=== PATIENT | male | born 1955 | race Caucasian/White ===

== ENCOUNTER 2022-05-08 22:31 | Inpatient (IN) | payer MEDICARE, OTHER, SELFPAY ==
[2022-05-09] MEDS ORDERED: Ondansetron PF 4 MG/2 ML Vial IVP PRN (02:22)
[2022-05-09] MEDS ORDERED: Acetaminophen 325 MG TAB PO PRN (02:22)
[2022-05-09 02:23] VITALS: BMI 20.5
[2022-05-09] MEDS ORDERED: Dextrose 5% in Water 1,000 ML IV PRN (02:23)
[2022-05-09] MEDS ORDERED: Dextrose 50% Abboject 50 ML SYRINGE SLOW IVP PRN (02:23)
[2022-05-09] MEDS: Sodium Chloride 0.9% 1,000 ML IV SCH ×2 (02:38→16:47)
[2022-05-09] MEDS: Piperacillin/Tazobactam 3.375 GM in Sodium Chloride 0.9% 100 ML IVPB SCH ×3 (02:49→18:09)
[2022-05-09 02:56] LABS: #Eosinphils 0.2 thou/uL (0.0-0.7); #Lymphocytes 1.3 thou/uL (1.20-3.40); #Monocytes 1.6 thou/uL (0.11-0.59); #Neutrophils 10.5 thou/uL (1.40-6.50); %Basophils 0.3 % (0.0-1.0); %Eosinophils 1.2 % (0.0-10.0); %Lymphocytes 9.7 % (21.0-51.0); %Monocytes 11.9 % (0.0-10.0); %Neutrophils 76.9 % (42.0-75.0); Hemoglobin 14.5 g/dL (14.0-18.0); Mean Corpuscular HGB CONC 35.2 g/dL (32.0-36.0); Mean Corpuscular Hemoglobin 33.9 pg (27.0-31.0); Mean Corpuscular Volume 96.4 fl (78.0-98.0); Mean Platelet Volume 5.8 fL (7.4-10.4); Platelet Count 366 10x3/uL (130-400); RBC Distribution Width 10.6 % (11.5-14.5); Red Blood Cell (RBC) Count 4.28 mill/uL (4.70-6.10); White Blood Cell (WBC) Count 13.7 10x3/uL (4.8-10.8)
[2022-05-09 03:14] LABS: Lactic Acid 1.5 mmol/L (0.5-2.2)
[2022-05-09 03:18] LABS: Hemoglobin A1c 12.4 % (4.0-6.0)
[2022-05-09 03:24] LABS: Anion Gap 16 mmol/L (10-20); BUN (Urea Nitrogen) 9 mg/dL (8.4-25.7); Calc. Creatinine Clearance 91 mL/min (70-130); Calcium 8.9 mg/dL (7.8-10.44); Carbon Dioxide 21 mmol/L (23-31); Chloride 99 mmol/L (98-107); Estimated GFR 99; Glucose 303 mg/dL (80-115); Potassium 3.7 mmol/L (3.5-5.1); Sodium 132 mmol/L (136-145)
[2022-05-09 03:28] LABS: SARS-CoV-2 NAA Rapid Test DETECTED (NotDetected)
[2022-05-09] MEDS ORDERED: Bacitracin Zinc Ointment 30 gm TUBE ONE (03:57)
[2022-05-09] MEDS ORDERED: Thrombin 5000 UNITS/5 ML VIAL ONE (03:57)
[2022-05-09] MEDS ORDERED: Bupivacaine PF 0.5% 30 ML VIAL ONE (03:57)
[2022-05-09] MEDS ORDERED: Neomycin-Polymyxin 1 ML AMP ONE (03:57)
[2022-05-09] MEDS ORDERED: fentaNYL PF 100 MCG/2 ML SYRINGE ONE (04:54)
[2022-05-09] MEDS ORDERED: Midazolam HCl 2 mg/2 ml Vial ONE (05:04)
[2022-05-09] MEDS ORDERED: Ondansetron PF 4 MG/2 ML Vial ONE (05:45)
[2022-05-09] MEDS ORDERED: PROPOFOL 200 MG/20 ML VIAL ONE (05:45)
[2022-05-09] MEDS ORDERED: Dexamethasone 20 MG/5 ML VIAL ONE (05:45)
[2022-05-09] MEDS ORDERED: PHENYLEPHRINE-NS 100 MCG/ML 10 ML SYRINGE ONE (05:45)
[2022-05-09] MEDS ORDERED: Promethazine HCl 25 MG/ML VIAL IM PRN (06:58)
[2022-05-09] MEDS ORDERED: Promethazine HCl 25 MG/ML VIAL IVPB PRN (06:58)
[2022-05-09] MEDS ORDERED: Ondansetron HCl/PF 4 MG/2 ML Vial IVP PRN (06:58)
[2022-05-09] MEDS ORDERED: HYDROmorphone 2 MG/ML VIAL SLOW IVP PRN (06:58)
[2022-05-09] MEDS ORDERED: Meperidine HCl/PF 25 MG/ML VIAL IM PRN (07:10)
[2022-05-09] MEDS ORDERED: Morphine 4 MG/ML VIAL SLOW IVP PRN (07:10)
[2022-05-09] MEDS: Vancomycin 1 GM in Premix Bag 1 BAG IVPB SCH ×2 (08:15→22:05)
[2022-05-09] MEDS ORDERED: Pen G 2.5 MILL.UNITS/50 ML BAG IVPB SCH (09:00)
[2022-05-09] MEDS ORDERED: Vancomycin HCl 1.5 GM in Sodium Chloride 0.9% 250 ML 300 ML IVPB SCH (09:00)
[2022-05-09] MEDS ORDERED: Insulin Glargine 30 UNITS/0.3 ML VIAL SC SCH (09:30)
[2022-05-09] MEDS: Penicillin G Potassium 2.5 MILL.UNITS in Sodium Chloride 0.9% 50 ML IVPB SCH ×4 (09:56→22:05)
[2022-05-09] MEDS: HumaLOG 300 UNITS/3 ML VIAL SC PRN ×2 (12:55→18:09)
[2022-05-09] MEDS: oxyCODONE/Acetaminophen 5 mg/325 mg Tablet PO PRN ×2 (13:02→20:21)
[2022-05-09] MEDS ORDERED: Gentamicin 80 MG/2 ML VIAL IM SCH (14:00)
[2022-05-09] MEDS: Gentamicin Sulfate 80 MG in Premix Bag 1 BAG IVPB SCH ×2 (14:40→23:12)
[2022-05-10] MEDS: Penicillin G Potassium 2.5 MILL.UNITS in Sodium Chloride 0.9% 50 ML IVPB SCH ×3 (01:16→10:47)
[2022-05-10] MEDS: HumaLOG 300 UNITS/3 ML VIAL SC PRN ×3 (01:16→16:38)
[2022-05-10] MEDS: Piperacillin/Tazobactam 3.375 GM in Sodium Chloride 0.9% 100 ML IVPB SCH (02:45)
[2022-05-10] MEDS: Sodium Chloride 0.9% 1,000 ML IV SCH (05:45)
[2022-05-10 06:01] LABS: #Eosinphils 0.3 thou/uL (0.0-0.7); #Lymphocytes 1.2 thou/uL (1.20-3.40); #Neutrophils 7.8 thou/uL (1.40-6.50); %Basophils 0.2 % (0.0-1.0); %Eosinophils 2.5 % (0.0-10.0); %Lymphocytes 11.3 % (21.0-51.0); %Monocytes 10.1 % (0.0-10.0); %Neutrophils 75.9 % (42.0-75.0); Hemoglobin 12.9 g/dL (14.0-18.0); Mean Corpuscular HGB CONC 34.5 g/dL (32.0-36.0); Mean Corpuscular Hemoglobin 33.6 pg (27.0-31.0); Mean Corpuscular Volume 97.6 fl (78.0-98.0); Mean Platelet Volume 5.8 fL (7.4-10.4); Platelet Count 367 10x3/uL (130-400); RBC Distribution Width 10.5 % (11.5-14.5); Red Blood Cell (RBC) Count 3.84 mill/uL (4.70-6.10); White Blood Cell (WBC) Count 10.3 10x3/uL (4.8-10.8)
[2022-05-10 06:16] LABS: Anion Gap 13 mmol/L (10-20); BUN (Urea Nitrogen) 10 mg/dL (8.4-25.7); Calc. Creatinine Clearance 95 mL/min (70-130); Calcium 8.5 mg/dL (7.8-10.44); Carbon Dioxide 22 mmol/L (23-31); Chloride 102 mmol/L (98-107); Estimated GFR 100; Glucose 221 mg/dL (80-115); Potassium 3.7 mmol/L (3.5-5.1); Sodium 133 mmol/L (136-145)
[2022-05-10] MEDS: Gentamicin Sulfate 80 MG in Premix Bag 1 BAG IVPB SCH (06:30)
[2022-05-10] MEDS: Vancomycin 1 GM in Premix Bag 1 BAG IVPB SCH ×2 (07:22→16:38)
[2022-05-10] MEDS: Insulin Glargine 30 UNITS/0.3 ML VIAL SC SCH (07:22)
[2022-05-10 08:20] LABS: Vancomycin, Trough 10.4 ug/mL
[2022-05-10] MEDS ORDERED: Vancomycin 1 GM in Premix Bag 1 BAG IVPB SCH (09:00)
[2022-05-10] MEDS: Cefepime 2 GM in Sodium Chloride 0.9% 100 ML IVPB SCH (15:10)
[2022-05-10] MEDS: oxyCODONE/Acetaminophen 5 mg/325 mg Tablet PO PRN (16:38)
[2022-05-11] MEDS: Cefepime 2 GM in Sodium Chloride 0.9% 100 ML IVPB SCH ×2 (01:42→14:18)
[2022-05-11] MEDS: Vancomycin 1 GM in Premix Bag 1 BAG IVPB SCH ×3 (02:31→16:26)
[2022-05-11] MEDS ORDERED: Bupivacaine PF 0.5% 30 ML VIAL ONE (09:50)
[2022-05-11] MEDS ORDERED: Fentanyl 250 MCG/5 ML VIAL ONE (10:29)
[2022-05-11] MEDS ORDERED: Mineral Oil Sterile 10 ML VIAL ONE (11:04)
[2022-05-11] MEDS ORDERED: Insulin Glargine 30 UNITS/0.3 ML VIAL SC SCH (12:45)
[2022-05-11] MEDS: oxyCODONE/Acetaminophen 5 mg/325 mg Tablet PO PRN ×2 (14:17→19:42)
[2022-05-11] MEDS: HumaLOG 300 UNITS/3 ML VIAL SC PRN ×2 (16:27→23:40)
[2022-05-11 16:33] LABS: #Basophils 0.1 thou/uL (0.0-0.2); #Eosinphils 0.2 thou/uL (0.0-0.7); #Monocytes 0.6 thou/uL (0.11-0.59); #Neutrophils 6.1 thou/uL (1.40-6.50); %Basophils 0.8 % (0.0-1.0); %Eosinophils 2.6 % (0.0-10.0); %Lymphocytes 12.1 % (21.0-51.0); %Monocytes 7.6 % (0.0-10.0); %Neutrophils 76.9 % (42.0-75.0); Hemoglobin 13.6 g/dL (14.0-18.0); Mean Corpuscular HGB CONC 33.5 g/dL (32.0-36.0); Mean Corpuscular Hemoglobin 32.7 pg (27.0-31.0); Mean Corpuscular Volume 97.6 fl (78.0-98.0); Mean Platelet Volume 5.7 fL (7.4-10.4); Platelet Count 352 10x3/uL (130-400); RBC Distribution Width 10.7 % (11.5-14.5); Red Blood Cell (RBC) Count 4.17 mill/uL (4.70-6.10); White Blood Cell (WBC) Count 7.9 10x3/uL (4.8-10.8)
[2022-05-11 16:49] LABS: Vancomycin, Trough 19.2 ug/mL
[2022-05-11 16:53] LABS: Anion Gap 14 mmol/L (10-20); BUN (Urea Nitrogen) 9 mg/dL (8.4-25.7); Calc. Creatinine Clearance 82 mL/min (70-130); Calcium 9.2 mg/dL (7.8-10.44); Carbon Dioxide 21 mmol/L (23-31); Chloride 102 mmol/L (98-107); Estimated GFR 96; Glucose 339 mg/dL (80-115); Potassium 4.3 mmol/L (3.5-5.1); Sodium 133 mmol/L (136-145)
[2022-05-11] MEDS: Insulin Glargine 30 UNITS/0.3 ML VIAL SC SCH (18:50)
[2022-05-11] MEDS: Lisinopril 10 MG TAB PO SCH (21:33)
[2022-05-12] MEDS: Cefepime 2 GM in Sodium Chloride 0.9% 100 ML IVPB SCH ×2 (00:47→12:37)
[2022-05-12] MEDS: Vancomycin 1 GM in Premix Bag 1 BAG IVPB SCH ×2 (01:50→09:56)
[2022-05-12] MEDS: HumaLOG 300 UNITS/3 ML VIAL SC PRN ×3 (06:28→17:05)
[2022-05-12 08:17] LABS: Glucose 263 mg/dL (80-115)
[2022-05-12] MEDS ORDERED: Insulin Glargine 30 UNITS/0.3 ML VIAL SC SCH ×2 (09:00→12:00)
[2022-05-12 13:18] LABS: Glucose 299 mg/dL (80-115)
[2022-05-12] MEDS: cefTRIAXone\\ROCEPHIN 2 GM in Sodium Chloride 0.9% 100 ML IVPB SCH (17:02)
[2022-05-12] MEDS: DAPTOmycin 500 MG in Sodium Chloride 0.9% 100 ML IVPB SCH (18:05)
[2022-05-12] MEDS: Lisinopril 10 MG TAB PO SCH (21:00)
[2022-05-13] MEDS ORDERED: hydrALAZINE 10 MG TAB PO SCH (05:30)
[2022-05-13 05:58] LABS: #Eosinphils 0.2 thou/uL (0.0-0.7); #Monocytes 0.6 thou/uL (0.11-0.59); #Neutrophils 3.9 thou/uL (1.40-6.50); %Basophils 0.5 % (0.0-1.0); %Eosinophils 3.8 % (0.0-10.0); %Lymphocytes 17.2 % (21.0-51.0); %Monocytes 10.2 % (0.0-10.0); %Neutrophils 68.3 % (42.0-75.0); Hemoglobin 12.8 g/dL (14.0-18.0); Mean Corpuscular HGB CONC 34.5 g/dL (32.0-36.0); Mean Corpuscular Hemoglobin 33.5 pg (27.0-31.0); Mean Corpuscular Volume 97.1 fl (78.0-98.0); Mean Platelet Volume 5.4 fL (7.4-10.4); Platelet Count 448 10x3/uL (130-400); RBC Distribution Width 10.5 % (11.5-14.5); Red Blood Cell (RBC) Count 3.83 mill/uL (4.70-6.10); White Blood Cell (WBC) Count 5.7 10x3/uL (4.8-10.8)
[2022-05-13 06:18] LABS: Anion Gap 11 mmol/L (10-20); BUN (Urea Nitrogen) 7 mg/dL (8.4-25.7); CRP (Inflammatory) 2.47 mg/dL (= or < 0.5); Calc. Creatinine Clearance 92 mL/min (70-130); Calcium 9.1 mg/dL (7.8-10.44); Carbon Dioxide 28 mmol/L (23-31); Chloride 103 mmol/L (98-107); Estimated GFR 99; Glucose 255 mg/dL (80-115); Potassium 3.9 mmol/L (3.5-5.1); Sodium 138 mmol/L (136-145)
[2022-05-13] MEDS ORDERED: Insulin Glargine 30 UNITS/0.3 ML VIAL SC SCH ×2 (09:00→13:45)
[2022-05-13] MEDS ORDERED: Bupivacaine 0.25% HCL 30 ML VIAL ONE (11:19)
[2022-05-13] MEDS ORDERED: Mineral Oil Sterile 10 ML VIAL ONE ×2 (11:19)
[2022-05-13] MEDS ORDERED: Bacitracin Zinc Ointment 30 gm TUBE ONE ×2 (11:19→13:24)
[2022-05-13] MEDS ORDERED: Bupivacaine PF 0.5% 30 ML VIAL ONE (11:19)
[2022-05-13] MEDS ORDERED: Fentanyl 250 MCG/5 ML VIAL ONE (11:27)
[2022-05-13] MEDS ORDERED: Sodium Chloride 0.9% 100 ML ONE (12:05)
[2022-05-13] MEDS ORDERED: CEFAZOLIN 2 GM VIAL ONE (12:05)
[2022-05-13] MEDS ORDERED: Ondansetron PF 4 MG/2 ML Vial ONE (12:10)
[2022-05-13] MEDS ORDERED: PROPOFOL 200 MG/20 ML VIAL ONE (12:10)
[2022-05-13] MEDS ORDERED: Phenylephrine 10 MG/ML VIAL ONE (12:10)
[2022-05-13] MEDS ORDERED: Ketorolac Tromethamine 30 MG/ML VIAL ONE (12:10)
[2022-05-13] MEDS: cefTRIAXone\\ROCEPHIN 2 GM in Sodium Chloride 0.9% 100 ML IVPB SCH (17:52)
[2022-05-13] MEDS: DAPTOmycin 500 MG in Sodium Chloride 0.9% 100 ML IVPB SCH (18:43)
[2022-05-13] MEDS: Lisinopril 10 MG TAB PO SCH (20:34)
[2022-05-13] MEDS: HumaLOG 300 UNITS/3 ML VIAL SC PRN (21:14)
[2022-05-14] MEDS: HumaLOG 300 UNITS/3 ML VIAL SC PRN ×2 (05:38→20:59)
[2022-05-14] MEDS: oxyCODONE/Acetaminophen 5 mg/325 mg Tablet PO PRN (05:42)
[2022-05-14 08:34] LABS: #Eosinphils 0.1 thou/uL (0.0-0.7); #Lymphocytes 1.5 thou/uL (1.20-3.40); #Monocytes 0.8 thou/uL (0.11-0.59); #Neutrophils 4.9 thou/uL (1.40-6.50); %Basophils 0.2 % (0.0-1.0); %Eosinophils 1.4 % (0.0-10.0); %Lymphocytes 20.7 % (21.0-51.0); %Monocytes 10.6 % (0.0-10.0); %Neutrophils 67.2 % (42.0-75.0); Hemoglobin 12.8 g/dL (14.0-18.0); Mean Corpuscular HGB CONC 33.9 g/dL (32.0-36.0); Mean Corpuscular Hemoglobin 33.2 pg (27.0-31.0); Mean Corpuscular Volume 97.8 fl (78.0-98.0); Mean Platelet Volume 5.7 fL (7.4-10.4); Platelet Count 518 10x3/uL (130-400); RBC Distribution Width 10.7 % (11.5-14.5); Red Blood Cell (RBC) Count 3.86 mill/uL (4.70-6.10); White Blood Cell (WBC) Count 7.3 10x3/uL (4.8-10.8)
[2022-05-14 08:44] LABS: Anion Gap 14 mmol/L (10-20); BUN (Urea Nitrogen) 11 mg/dL (8.4-25.7); CK (CPK) 23 U/L (30-200); CRP (Inflammatory) 1.32 mg/dL (= or < 0.5); Calc. Creatinine Clearance 81 mL/min (70-130); Calcium 9.1 mg/dL (7.8-10.44); Carbon Dioxide 23 mmol/L (23-31); Chloride 100 mmol/L (98-107); Estimated GFR 95; Glucose 272 mg/dL (80-115); Potassium 3.7 mmol/L (3.5-5.1); Sodium 133 mmol/L (136-145)
[2022-05-14] MEDS ORDERED: Insulin Glargine 30 UNITS/0.3 ML VIAL SC SCH ×2 (09:00→21:00)
[2022-05-14] MEDS ORDERED: Amlodipine 5 MG TAB PO SCH (15:45)
[2022-05-14] MEDS: cefTRIAXone\\ROCEPHIN 2 GM in Sodium Chloride 0.9% 100 ML IVPB SCH (16:58)
[2022-05-14] MEDS: DAPTOmycin 500 MG in Sodium Chloride 0.9% 100 ML IVPB SCH (18:20)
[2022-05-14] MEDS: metFORMIN 500 MG TAB PO SCH (18:20)
[2022-05-14] MEDS ORDERED: Docusate 100 MG CAP PO PRN (20:00)
[2022-05-14] MEDS: Lisinopril 10 MG TAB PO SCH (20:54)
[2022-05-15 06:56] LABS: Anion Gap 11 mmol/L (10-20); BUN (Urea Nitrogen) 9 mg/dL (8.4-25.7); Calc. Creatinine Clearance 101 mL/min (70-130); Carbon Dioxide 28 mmol/L (23-31); Chloride 104 mmol/L (98-107); Estimated GFR 102; Glucose 161 mg/dL (80-115); Potassium 3.7 mmol/L (3.5-5.1); Sodium 139 mmol/L (136-145)
[2022-05-15] MEDS ORDERED: Amlodipine 5 MG TAB PO SCH (09:00)
[2022-05-15] MEDS ORDERED: Insulin Glargine 30 UNITS/0.3 ML VIAL SC SCH ×2 (09:00)
[2022-05-15] MEDS: metFORMIN 500 MG TAB PO SCH (09:28)
[2022-05-15 12:03] VITALS: BP 160/84; TEMP 97.6
[2022-05-15] MEDS: HumaLOG 300 UNITS/3 ML VIAL SC PRN (12:55)
[2022-05-15] MEDS: cefTRIAXone\\ROCEPHIN 2 GM in Sodium Chloride 0.9% 100 ML IVPB SCH (15:08)
[2022-05-15] MEDS ORDERED: DAPTOmycin 500 MG in Sodium Chloride 0.9% 100 ML IVPB SCH (16:00)
== END 2022-05-15 16:50 | disposition home or self-care (01) | DRG 255 ==
LOC: SURG A 05-09 01:21
PROVIDERS: ADMIT Family Medicine; ATTEND Family Medicine
PROC: 0LB70ZZ Excision of Right Hand Tendon, Open Approach (ICD-10-PCS; 2022-05-09)
PROC: 0X6N0Z1 Detachment at Right Index Finger, High, Open Approach (ICD-10-PCS; 2022-05-09)
PROC: 01N50ZZ Release Median Nerve, Open Approach (ICD-10-PCS; 2022-05-09)
PROC: 3E03329 Introduction of Other Anti-infective into Peripheral Vein, Percutaneous Approach (ICD-10-PCS; 2022-05-09)
PROC: 8E0ZXY6 Isolation (ICD-10-PCS; 2022-05-09)
PROC: 0JBJ0ZZ Excision of Right Hand Subcutaneous Tissue and Fascia, Open Approach (ICD-10-PCS; principal; 2022-05-13)
PROC: 0HRFX73 Replacement of Right Hand Skin with Autologous Tissue Substitute, Full Thickness, External Approach (ICD-10-PCS; 2022-05-13)
PROC: 02HV33Z Insertion of Infusion Device into Superior Vena Cava, Percutaneous Approach (ICD-10-PCS; 2022-05-14)
PROC: B5181ZA Fluoroscopy of Superior Vena Cava using Low Osmolar Contrast, Guidance (ICD-10-PCS; 2022-05-14)
DX: E11.52 Type 2 diabetes mellitus with diabetic peripheral angiopathy with gangrene (principal); U07.1 COVID-19; L02.511 Cutaneous abscess of right hand; L03.113 Cellulitis of right upper limb; M86.8X4 Other osteomyelitis, hand; E11.69 Type 2 diabetes mellitus with other specified complication; I10 Essential (primary) hypertension; E11.65 Type 2 diabetes mellitus with hyperglycemia; B95.62 Methicillin resistant Staphylococcus aureus infection as the cause of diseases classified elsewhere; B96.1 Klebsiella pneumoniae [K. pneumoniae] as the cause of diseases classified elsewhere; D64.9 Anemia, unspecified; M65.841 Other synovitis and tenosynovitis, right hand
CPT/HCPCS: 36415; 36416; 36569; 80048; 80170; 80202; 82550; 82947; 83036; 83605; 85025; 85652; 86140; 87040; 87070; 87077; 87186; 87205; 88305; C1751; J0692; J0696; J0878; J1100; J1580; J1815; J1885; J2250; J2270; J2370; J2405; J2540; J2543; J2704; J3010; J3370; J3490; J7050; S0020; U0002

== ENCOUNTER 2022-09-24 13:52 | Day surgery (SDC) | payer MEDICARE, OTHER ==
[2022-09-21 10:42] VITALS: BMI 20.9
[2022-09-24] MEDS ORDERED: Bupivacaine PF 0.5% 30 ML VIAL ONE (14:44)
[2022-09-24] MEDS ORDERED: Vancomycin 1 GM VIAL ONE (14:44)
[2022-09-24] MEDS ORDERED: Bacitracin Zinc Ointment 30 gm TUBE ONE (14:44)
[2022-09-24] MEDS ORDERED: Thrombin 5000 UNITS/5 ML VIAL ONE (14:50)
[2022-09-24] MEDS ORDERED: Mineral Oil Sterile 10 ML VIAL ONE (14:50)
[2022-09-24] MEDS ORDERED: fentaNYL PF 100 MCG/2 ML SYRINGE ONE (15:05)
[2022-09-24] MEDS ORDERED: Sodium Chloride 0.9% 100 ML ONE (15:11)
[2022-09-24] MEDS ORDERED: Ondansetron PF 4 MG/2 ML Vial ONE (15:28)
[2022-09-24] MEDS ORDERED: Lidocaine 1% PF 5 ML VIAL ONE (15:28)
[2022-09-24] MEDS ORDERED: PHENYLEPHRINE-NS 100 MCG/ML 10 ML SYRINGE ONE (15:28)
[2022-09-24] MEDS ORDERED: Dexamethasone 20 MG/5 ML VIAL ONE (15:28)
[2022-09-24] MEDS ORDERED: PROPOFOL 200 MG/20 ML VIAL ONE (15:28)
[2022-09-24 15:48] LABS: #Basophils 0.1 thou/uL (0.0-0.2); #Eosinphils 0.2 thou/uL (0.0-0.7); #Lymphocytes 1.5 thou/uL (1.20-3.40); #Monocytes 0.5 thou/uL (0.11-0.59); #Neutrophils 3.1 thou/uL (1.40-6.50); %Basophils 1.2 % (0.0-1.0); %Eosinophils 3.6 % (0.0-10.0); %Lymphocytes 28.5 % (21.0-51.0); %Monocytes 9.3 % (0.0-10.0); %Neutrophils 57.4 % (42.0-75.0); Hemoglobin 11.8 g/dL (14.0-18.0); Mean Corpuscular HGB CONC 34.2 g/dL (32.0-36.0); Mean Corpuscular Hemoglobin 30.7 pg (27.0-31.0); Mean Corpuscular Volume 89.7 fl (78.0-98.0); Mean Platelet Volume 5.7 fL (7.4-10.4); Platelet Count 307 10x3/uL (130-400); RBC Distribution Width 11.2 % (11.5-14.5); Red Blood Cell (RBC) Count 3.84 mill/uL (4.70-6.10); White Blood Cell (WBC) Count 5.3 10x3/uL (4.8-10.8)
[2022-09-24 16:17] LABS: Anion Gap 13 mmol/L (10-20); BUN (Urea Nitrogen) 26 mg/dL (8.4-25.7); Calc. Creatinine Clearance 51 mL/min (70-130); Calcium 9.4 mg/dL (7.8-10.44); Carbon Dioxide 22 mmol/L (23-31); Chloride 101 mmol/L (98-107); Estimated GFR 54; Glucose 253 mg/dL (80-115); Potassium 5.1 mmol/L (3.5-5.1); Sodium 131 mmol/L (136-145)
== END 2022-09-24 18:05 | disposition home or self-care (01) ==
LOC: SDC 13:52
PROVIDERS: ATTEND Orthopaedic Surgery Hand Surgery
PROC: 0PBV0ZZ Excision of Left Finger Phalanx, Open Approach (ICD-10-PCS; principal; 2022-09-24)
PROC: 0HRGX73 Replacement of Left Hand Skin with Autologous Tissue Substitute, Full Thickness, External Approach (ICD-10-PCS; 2022-09-24)
DX: E11.69 Type 2 diabetes mellitus with other specified complication (principal); M86.8X4 Other osteomyelitis, hand; S61.201A Unspecified open wound of left index finger without damage to nail, initial encounter; L03.012 Cellulitis of left finger; G56.03 Carpal tunnel syndrome, bilateral upper limbs; I10 Essential (primary) hypertension; Z79.84 Long term (current) use of oral hypoglycemic drugs; Z79.85 Long-term (current) use of injectable non-insulin antidiabetic drugs; Z79.899 Other long term (current) drug therapy; Z98.890 Other specified postprocedural states; X58.XXXA Exposure to other specified factors, initial encounter
CPT/HCPCS: 36415; 80048; 85025; 87070; 87077; 87186; 87205; 88307; 88311; 93005; 93010; J1100; J2405; J2704; J3370; J3490; S0020

== ENCOUNTER 2023-02-28 08:25 | Day surgery (SDC) | payer OTHER ==
[2023-02-27 13:14] VITALS: BMI 20.5
[~2023-02-28 08:25] MED LIST: EPINEPHrine 0.3 MG in Ophthalmic Irrigation Solution 500 ML IRR SCH; Midazolam HCl 2 mg/2 ml Vial ONE; fentaNYL 50 mcg/mL 1 mL Vial ONE
[2023-02-28] MEDS ORDERED: Cyclopentolate 1% Opth Drop 2 ML BOT ONE (09:14)
[2023-02-28] MEDS ORDERED: PHENYLephrine 2.5% Ophth Soln 15 ml Bottle ONE (09:14)
[2023-02-28] MEDS ORDERED: Triamcinolone 40 MG/ML VIAL ONE (10:34)
[2023-02-28] MEDS ORDERED: Maxitrol 0.1% Opth Oint 3.5 GM TUBE ONE (10:34)
[2023-02-28] MEDS ORDERED: Lidocaine 1% PF 5 ML VIAL ONE (10:34)
[2023-02-28] MEDS ORDERED: Bupivacaine 0.75% 10 ML VIAL ONE (10:34)
[2023-02-28] MEDS ORDERED: Lidocaine 4% PF 5 ML AMP ONE (10:34)
[2023-02-28] MEDS ORDERED: PROPOFOL 200 MG/20 ML VIAL ONE (10:34)
[2023-02-28] MEDS ORDERED: CEFAZOLIN 1 GM VIAL ONE (10:34)
== END 2023-02-28 12:35 | disposition home or self-care (01) ==
LOC: SDC 08:25
PROVIDERS: ATTEND Ophthalmology Retina Specialist
PROC: 08N43ZZ Release Right Vitreous, Percutaneous Approach (ICD-10-PCS; principal; 2023-02-28)
PROC: 08NE3ZZ Release Right Retina, Percutaneous Approach (ICD-10-PCS; 2023-02-28)
DX: H40.51X4 Glaucoma secondary to other eye disorders, right eye, indeterminate stage (principal); E13.3 Other specified diabetes mellitus with ophthalmic complications
CPT/HCPCS: 66180; 67040; 82962; C1762; J3010; 36416; J0171; J0690; J2250; J2704; J3301; J3490; L8612

== ENCOUNTER 2025-05-13 09:38 | Outpatient (CLI) | payer MEDICARE ==
[2025-05-13 10:43] LABS: Estimated GFR - POC 60.0
== END 2025-05-13 09:39 | disposition home or self-care (01) ==
LOC: SCSMRI 09:38
PROVIDERS: ATTEND Urology
DX: C61 Malignant neoplasm of prostate (principal); N42.89 Other specified disorders of prostate
CPT/HCPCS: 36415; 72197; 82565